=== PATIENT | female | born 1975 | race Hispanic/Latino ===

== ENCOUNTER 2024-11-12 06:18 | Day surgery (SDC) | payer BC ==
[2024-11-10 13:22] VITALS: BP 135/77; PULSE 68; RESP 18; TEMP 98.1
[2024-11-12] VITALS (18 sets, daily range): BP systolic 87–126; BP diastolic 43–81; PULSE 57–87; RESP 16–19; TEMP 97.4–98
[~2024-11-12] VITALS: Ht 157.5 cm; Wt 88.6 kg
[~2024-11-12 06:18] MED LIST: INSU3INS5 SQ; LISI2.5T13 PO; METF-446 PO
[2024-11-12] MEDS: dexaMETHasone SOD PHOSPHATE 4 MG/ML 1ML VIAL ONE (06:53)
[2024-11-12] MEDS: SCOPOLAMINE HYDROBROMIDE 1 EACH ADH..PATCH TD ONE (06:53)
[2024-11-12] MEDS: metRONIDazole 500MG/100ML BAG 100 ML ONE (06:54)
[2024-11-12] MEDS: PHENAZOpyridine HCL 200 MG TAB 200 MG TABLET ONE (06:54)
[2024-11-12] MEDS: ceFAZolin SODIUM 2 GM VIAL ONE (06:54)
[2024-11-12] MEDS: 0.9%NACL 1000ML 1,000 ML IV ONE (06:54)
[2024-11-12] MEDS ORDERED: FENTanyl CITRate PF 50 MCG/1 ML 2ML VIAL ONE ×3 (07:18→11:04)
[2024-11-12] MEDS ORDERED: proPOFol 10 MG/ML 20ML VIAL IV ONE (07:18)
[2024-11-12] MEDS ORDERED: rocuRONium bROMide 10MG/1ML 5ML VL ONE ×2 (07:18→08:46)
[2024-11-12] MEDS ORDERED: MIDAZOLAM HCL 1 MG/ML 2ML VIAL ONE (07:18)
[2024-11-12] MEDS ORDERED: BUPIvacaine/PF 0.5% 30ML VIAL ONE (07:37)
[2024-11-12] MEDS ORDERED: LIDOCAINE 1%-EPI 1:100,000 20 ML VIAL ONE (07:38)
[2024-11-12] MEDS ORDERED: ondanSETRON 4MG INJ ONE (07:41)
[2024-11-12] MEDS ORDERED: BUPIvacaine/PF 0.25% 30ML VIAL IJ ONE (07:49)
[2024-11-12] MEDS ORDERED: ePHEDrine SULFate 50 MG/ML AMPULE ONE (08:14)
[2024-11-12] MEDS: ceFAZolin SODIUM 2 GM VIAL IVPB ONE (08:15)
[2024-11-12] MEDS ORDERED: ketOROlac 30MG VIAL (30MG/ML) ONE (11:00)
[2024-11-12] MEDS ORDERED: GLYCOPYRROLATE 0.2 MG/ML 5 ML VIAL ONE (11:02)
[2024-11-12] MEDS ORDERED: NEOSTIGMINE METHYLSULFATE 1MG/ML IV ONE (11:02)
[2024-11-12] MEDS ORDERED: metoCLOPRAmide 10 MG/2 ML VIAL ONE (11:08)
--- NOTE | 2024-11-12 11:32 | OP ---
Operative Note: DATE OF PROCEDURE: 11/12/24 SURGEON: AMBER HANKINS MD CD[facility] BULK DRIVER: [none] ANESTHESIA: [General] ANESTHESIOLOGIST/COMMISSION SALES ASSOCIATE: [General] PREOPERATIVE DIAGNOSIS: [BRCA gene mutation carrier] POSTOPERATIVE DIAGNOSIS: [same] SYNOPSIS: [na ] PROCEDURE: [daVinci total laparoscopic hysterectomy, bilateral salpingectomy, cystoscopy] ESTIMATED BLOOD LOSS: [10 cc] INDICATIONS: [brca carrier risk reducing surgery] DESCRIPTION OF PROCEDURE: [the patient and her were visited in the holding area and the operation stated in plain Q[place], she had no additional questions and was ready to proceed. She was taken to the operating room and placed under general anesthesia, prepped and draped in the normal sterile fash ion in the trendelenburg position in the universal stirrups. A time out was taken to confirm identity, operation, medications and allergies. A right angle was placed in the vagina and anterior lip of cervix identified uterus sounded 10 cm and the large vcare manipulator was placed in usual fashion, Hess was placed which drained clear urine. the surgeon's gloves were changed and patient placed flat and 0.25% marcaine infused in the left midclavicular line about 2 cm from the costal margin and after confirming decompression of the stomach a long veress needle was introduced and intraperitoneal placement was confirmed with sterile saline. The abdomen was insufflated to a good dome and davinci sleeves were placed in the left, and right and an airseal was placed in the midline well above the umbilicus which was displaced very low, and a 10 mm was placed on the left, lisandra close was placed at all sites. The patient was placed in steepest Trendelenberg position and then brought out to about 23 degrees, the pelvis was filled with large and small bowel and large bowel was distended with gas, nothing moved out of the way even in steepest trendelenberg. A 16 gauge red rubber catheter was placed in the rectum to attempt to decompress the worst of the gaseous distension. The robot was docked and the fenestrated bipolar and vessel sealer were placed. With the aid of the laparoscopic rake retractor by the switchboard operator assistant the left infundibulopelvic ligament was identified away from the pelvic brim and coagulated very close to the ovary and then divided up to the level of the uterus, a similar procedure was carried out on the right. Then barbed suture was used to suture the bowel epiploica of the small bowel on the right and the large bowel on the left so that some visibility could be obtained. The vessel sealer was used on the bilateral lateral uterus down to just above the uterine manipulator and the adhesions of the bladder to the uterus were lysed with cold monopolar scissors and very occasional hot, the bladder had a large amount of redundant tortuous vessels just in the area around the uterine manipulator andthese were successfully avoided until the bladder was mobilized below the manipulator the bilateral uterine arteries were coagulated and divided and the vagina opened on the lateral angles and barbed suture placed there for later closure and then with assistance from the rake the posterior of the uterus was divided from the vagina and then the anterior was released and the specimen was brought out of the vagina, copious irrigation was done and then again with assistance from the rake the cuff was closed with continued difficulty of visualization due to all the redundant gaseous bowel. Two midline figure of 8 sutures of 2-0 pds were placed, the area was irrigated and found to be hemostatic, the previously sutured epiploica were released with only forward motion of the suture and all sutures and pieces of suture were brought out of the abodmen, the intestines were inspected and no areas of injury or bleeding were noted. The tube placed in the rectum was removed, the instruments were removed and the robot was undocked, cystoscopy was performed and methylene blue was administered as the patient had very clear urine and the ureteral orifices were difficult to identify, eventually streams of urine were seen from both ureteral orifices and no damage was noted in the bladder. The surgeon's gloves were changed and the abdomen desufflated and the sleeves removed, all lisandra closes were tied and the skin was closed with 4-0 monocryl and superglue was placed. the patient tolerated the procedure well, sponge lap and needle counts were correct at the end of the case. The patient's was called with the patient's stability, after this I was summoned back to the OR, the patient had a laceration at the introitus which was bleeding and another at the 6 pm position slightly deeper in the vagina which was bleeding. Fibure of eight sutures of 2-0 vicryl were placed at all sites to render them hemostatic. The patient was then awakened and taken to the recovery room in stable condition. Amber Hankins MD ] AMBER HANKINS MD Nov 12, 2024 11:32
[2024-11-12] MEDS: FENTanyl CITRate PF 50 MCG/1 ML 2ML VIAL ONE (12:02)
[2024-11-12] MEDS ORDERED: ondanSETRON 4MG INJ IVP PRN (13:30)
[2024-11-12] MEDS: ondanSETRON 4MG INJ IVP ONE (13:40)
[2024-11-12] MEDS: acetaMINOPHEN 500 MG TABLET PO ONE (13:40)
== END 2024-11-12 15:12 | disposition home or self-care (01) ==
LOC: DAH 06:18
PROVIDERS: ATTEND Obstetrics & Gynecology
DX: N72 Inflammatory disease of cervix uteri (principal); Z15.01 Genetic susceptibility to malignant neoplasm of breast; N80.03 Adenomyosis of the uterus; N39.3 Stress incontinence (female) (male); E11.9 Type 2 diabetes mellitus without complications; E66.01 Morbid (severe) obesity due to excess calories; E78.00 Pure hypercholesterolemia, unspecified; Z68.36 Body mass index [BMI] 36.0-36.9, adult; Z79.899 Other long term (current) drug therapy
CPT/HCPCS: 58571; S2900; 36415; 82948; 84703; 86850; 86900; 86901; 88307; A4344; J1100; J1885; J2250; J2270; J2405; J2704; J2710; J2765; J3010; J3490; J7030; J7120; Q9968; A4213; A4215; A4216; A4221; A4222; A4223; A4351; A4510; A4600; A4649; A4663; A4930; A6260; C1769; J0665; J0690